=== PATIENT | female | born 1995 | race Hispanic/Latino ===

== ENCOUNTER → 2024-07-25 09:19 | Outpatient (CLI) | payer OTHER, SELFPAY ==
[2024-07-26 22:42] LABS: Hep C Virus Ab w/Reflex Quant NEGATIVE s/c (NEGATIVE)
== END ==
LOC: LAB 09:21
PROVIDERS: Referring Provider Obstetrics & Gynecology; Visit Provider Obstetrics & Gynecology
DX: Z34.80 Encounter for supervision of other normal pregnancy, unspecified trimester (principal)
CPT/HCPCS: 36415; 86803; 86850; 86900; 86901; 87086

== ENCOUNTER → 2024-08-10 08:31 | Outpatient (CLI) | payer OTHER, SELFPAY ==
--- NOTE | 2024-08-10 08:32 | DI.US.S_ITS ---
PROCEDURE: US OB >= 14 WEEKS FETUS INDICATIONS: 20 week anatomy scan OUTSIDE/PRIOR DATING DATA: Last menstrual period (LMP): 04/03/24. LMP-based estimated date of delivery (DAVION): 01/08/25. First dating scan (date and location): This study, 08/10/24. Estimated date of delivery (DAVION) from first dating scan: 01/03/25. The calculations are made using the most accurate DAVION of 01/03/25. TECHNIQUE: Real-time scanning was performed of the fetus, with image documentation and biometric measurements. Endovaginal scanning: Not needed COMPARISON: None. FINDINGS: General: A single living intrauterine gestation is present. Presentation: Breech. Placenta: Placental position is anterior , without previa. Amniotic fluid index: 14.5 cm, normal range is 5-24 cm. A slight amount of debris was seen within the fluid. Single deepest vertical pocket is 5.8 cm. heart rate: 144 beats per minute. Maternal cervical canal: 4.3 cm long. Normal lower limit is 2.5 cm. biometrics: Biparietal diameter: 4.5 cm, 19 weeks 3 days Head circumference: 15.9 cm, 18 weeks 5 days Abdominal circumference: 13.4 cm, 19 weeks 1 day Femur length: 3.0 cm, 19 weeks 1 day Clinically estimated gestational age: 18 weeks 3 days Composite gestational age from present scan: 19 weeks 1 day Anatomic survey: Neuro: Ventricles are non-dilated at less than 10 mm. Cisterna magna is normal at 3-11 mm. Cerebellum is normal in size and morphology. Suspect minimal latoay cisterna magna as a normal variant. Nuchal skin fold: Normal at less than 6 mm between 14-21 weeks gestational age. Face: Nose and lips, facial profile are normal. Spine: No evidence for spina bifida. Heart: 4-chambered heart is present, with relatively poorly seen ventricular outflow tracts due to positioning. Diaphragm: Diaphragm is intact. Stomach: Left-sided stomach is present. Kidneys: No hydronephrosis. Normal is less than 5 mm in 2nd trimester, less than 7 mm in 3rd trimester. Cord: 3-vessel cord has orthotopic insertion. Bladder: Normal in size. Extremities: All 4 extremities identified. IMPRESSION: Appropriate interval growth, no anomaly seen. The delivery date is projected to be centered on 01/03/25. Dictated by: Gonsalo Albert M.D. on 08/10/2024 at 16:45 Approved by: Gonsalo Albert M.D. on 08/10/2024 at 16:51
== END ==
LOC: US 08:32
PROVIDERS: Referring Provider Obstetrics & Gynecology; Visit Provider Obstetrics & Gynecology
DX: Z34.80 Encounter for supervision of other normal pregnancy, unspecified trimester (principal); Z3A.18 18 weeks gestation of pregnancy
CPT/HCPCS: 76811

== ENCOUNTER → 2024-08-15 15:35 | Outpatient (CLI) | payer OTHER, SELFPAY ==
[2024-08-18 20:07] LABS: AFP, Serum 54.9 ng/mL (.); Estriol, Free 3.16 ng/mL (.); Inhibin A, Dimeric 143.01 pg/mL (.); Inhibin A, MoM 0.73 (.); Maternal Ethnicity Other (.); Maternal Weight 122 lbs (.); Number of Fetuses No (.); OSBR Risk 1 IN 10000 (.); Results Report (.); Test Results *Screen Negative* (.); hCG, Serum 18783 mIU/mL (.)
== END ==
PROVIDERS: Referring Provider Obstetrics & Gynecology; Visit Provider Obstetrics & Gynecology
DX: Z34.92 Encounter for supervision of normal pregnancy, unspecified, second trimester (principal); Z3A.19 19 weeks gestation of pregnancy
CPT/HCPCS: 36415; 82105; 82677; 84702; 86336

== ENCOUNTER → 2024-10-02 12:14 | Outpatient (CLI) | payer OTHER, SELFPAY ==
[2024-10-02 13:43] LABS: Hematocrit 34.5 % (36-46); Hemoglobin 11.3 g/dL (12.0-16.0)
[2024-10-02 14:30] LABS: GTT (PREG) 1 Hour PP 50gm Dose 94 mg/dL (76-139)
== END ==
PROVIDERS: Referring Provider Specialist; Visit Provider Specialist
DX: Z34.82 Encounter for supervision of other normal pregnancy, second trimester (principal); Z3A.26 26 weeks gestation of pregnancy
CPT/HCPCS: 82950; 85014; 85018

== ENCOUNTER 2024-11-16 09:29 | Outpatient (CLI) | payer OTHER, SELFPAY ==
[2024-11-16] MEDS: ACETAMINOPHEN 325 MG TABLET 1000 MG PO (10:17)
--- NOTE | 2024-11-18 21:02 | PM.OBTRLD ---
Visit Information Visit Information Date of evaluation: 11/16/24 Primary OB Provider: Crystal Cannon Reason for Evaluation: Yes non-stress test non-stress test reason: other (grade 3 placenta) PFSH Medical History (Updated 10/28/24 @ 14:51 by Crystal Cannon MD) Colitis Surgical History (Updated 10/10/24 @ 10:44 by Crystal Cannon MD) History of stapedectomy (~2022) Previous section Family History (Updated 07/10/24 @ 13:34 by Joslyn León RN) Mother Colon cancer Brother Leukemia Social History marital status: number of children: 2 household members: spouse and children lives independently: Yes caregiver/support person: Yes housing: house pets and animals: Yes (dog) education level: college (some college) occupational status: unemployed current occupational exposures/hazards: No special en[place] needs: No travel history: over 6 months ago seatbelt use: always water heater temp set < 120 deg: Yes working smoke detector in home: Yes fire extinguisher in home: Yes carbon monox detector in home: Yes firearms in home: Yes firearms unloaded and locked: Yes do you feel safe at home: Yes second hand exposure: No alcohol intake: former (very occasionally when not ) substance use type: does not use during the past year weight has: remained stable well-balanced diet: about half the time daily servings fruits/ve-4 caffeine: Yes (occasional coffee) Type(s) of exercise: weight lifting Evaluation Evaluation Baseline heart rate: 138 Variability: Moderate (6-25) monitor accelerations: Present Monitor Decelerations: Absent Contraction Frequency (minutes): 10 Uterine Contraction Intensity: Mild Category of Tracing: Reactive Diagnosis, Plan/Disposition Plan/Disposition Plan: Assessment: 29-year-old 3 para 2 at 32 weeks' gestation Grade 3 placenta starting at 29 weeks' gestation Reactive nonstress test Plan: Discharge to home kick counts discussed labor symptoms discussed Follow-up in 1 week for repeat nonstress test OB Disposition: home
== END 2024-11-16 10:30 | disposition home or self-care (01) ==
LOC: LABOR 11:14 → OB 11-19 07:04
PROVIDERS: Referring Provider Obstetrics & Gynecology; Visit Provider Obstetrics & Gynecology
DX: O43.893 Other placental disorders, third trimester (principal); Z3A.32 32 weeks gestation of pregnancy
CPT/HCPCS: 59025; G0378; G0379

== ENCOUNTER 2024-11-22 10:48 | Outpatient (CLI) | payer OTHER, SELFPAY ==
[2024-11-22] MEDS: ACETAMINOPHEN 325 MG TABLET 650 MG PO (11:31)
== END 2024-11-22 11:36 | disposition home or self-care (01) ==
LOC: LABOR 11:24 → OB 14:27
PROVIDERS: Referring Provider Obstetrics & Gynecology; Visit Provider Obstetrics & Gynecology
DX: O26.893 Other specified pregnancy related conditions, third trimester (principal); O34.219 Maternal care for unspecified type scar from previous cesarean delivery; O43.893 Other placental disorders, third trimester; R51.9 Headache, unspecified; Z3A.33 33 weeks gestation of pregnancy
CPT/HCPCS: 59025; G0378; G0379

== ENCOUNTER 2024-11-29 08:45 | Outpatient (CLI) | payer OTHER, SELFPAY | END 2024-11-29 10:23 | disposition home or self-care (01) | LOC: LABOR 09:13 → OB 13:36 | PROVIDERS: Referring Provider Obstetrics & Gynecology; Visit Provider Obstetrics & Gynecology | DX: O34.219 Maternal care for unspecified type scar from previous cesarean delivery (principal); O43.893 Other placental disorders, third trimester; Z3A.34 34 weeks gestation of pregnancy | CPT/HCPCS: 59025; G0378; G0379 ==

== ENCOUNTER 2024-12-02 14:40 | Outpatient (CLI) | payer OTHER, SELFPAY ==
--- NOTE | 2024-12-02 17:02 | P.TNLD_ITS ---
Visit Information Visit Information Date of evaluation: 12/02/24 Primary OB Provider: Crystal Cannon On-call OB Provider: Triston Robledo Reason for Evaluation: Yes rule out labor Comments/Additional reasons for admission: 29-year-old at GA 34+5 weeks presenting for contractions. Woke up with contractions around 0800 this morning, notes approximately every 10 minutes. Has tried oral hydration at home along with rest but contraction persist. Endorses normal movement. Denies vaginal bleeding or leakage of fluid. course notable for premature aging of placenta with grade 3 calcifications and history of delivery. [facility] Medical History (Updated 12/02/24 @ 17:10 by Triston Robledo MD) Colitis Surgical History (Updated 10/10/24 @ 10:44 by Crystal Cannon MD) History of stapedectomy (~2022) Previous section Family History (Updated 07/10/24 @ 13:34 by Joslyn León RN) Mother Colon cancer Brother Leukemia Social History marital status: number of children: 2 household members: spouse and children lives independently: Yes caregiver/support person: Yes housing: house pets and animals: Yes (dog) education level: college (some college) occupational status: unemployed current occupational exposures/hazards: No special enrico needs: No travel history: over 6 months ago seatbelt use: always water heater temp set < 120 deg: Yes working smoke detector in home: Yes fire extinguisher in home: Yes carbon monox detector in home: Yes firearms in home: Yes firearms unloaded and locked: Yes do you feel safe at home: Yes second hand exposure: No alcohol intake: former (very occasionally when not ) substance use type: does not use during the past year weight has: remained stable well-balanced diet: about half the time daily servings fruits/ve-4 caffeine: Yes (occasional coffee) Type(s) of exercise: weight lifting Review of Systems Review of Systems ROS: Yes All systems reviewed with the patient and are negative except as otherwise documented Evaluation Evaluation Baseline heart rate: 130 Variability: Moderate (6-25) monitor accelerations: Present Monitor Decelerations: Absent Contraction Frequency (minutes): 3 Uterine Contraction Intensity: Mild Category of Tracing: Reactive Status: Category l Cervical dilation (cm): 0 Cervical effacement (%): 0 station: -4 Diagnosis, Plan/Disposition Final Diagnosis (1) False labor before 37 completed weeks of gestation in second trimester: Status: Acute (2) Previous section complicating : Status: Acute Plan/Disposition Plan: No cervical waste/materials exchange specialist 1.5 hours observation. NST reactive with category 1 strip reassuring for well being. Discharge home with labor precautions, low threshold for return given history of delivery. OB Disposition: home
[2024-12-02 17:38] LABS: Appearance Urine UA SL CLOUDY; Bilirubin Urine UA NEGATIVE (NEGATIVE); Color Urine UA YELLOW; Glucose Urine UA NEGATIVE (Negative); Ketones Urine UA TRACE (NEGATIVE); Leukocyte Esterase Urine UA NEGATIVE (NEGATIVE); Nitrite Urine UA NEGATIVE (Negative); Occult Blood Urine UA NEGATIVE (Negative); Protein Urine UA NEGATIVE (Negative); Specific Gravity Urine UA 1.025 (1.000-1.035); Urobilinogen Urine UA 0.2 E.U./dL (0.2)
[2024-12-02 17:44] LABS: pH Urine UA 5.5 (4.5-8.0)
== END 2024-12-02 16:08 | disposition home or self-care (01) ==
LOC: OB 12-04 10:13
PROVIDERS: Referring Provider Family Medicine; Visit Provider Family Medicine
DX: O47.03 False labor before 37 completed weeks of gestation, third trimester (principal); O34.219 Maternal care for unspecified type scar from previous cesarean delivery; Z3A.34 34 weeks gestation of pregnancy
CPT/HCPCS: 59025; 81003; G0378; G0379

== ENCOUNTER 2024-12-05 09:42 | Outpatient (CLI) | payer OTHER, SELFPAY | END 2024-12-05 11:04 | disposition home or self-care (01) | LOC: LABOR 10:17 → OB 17:29 | PROVIDERS: Referring Provider Obstetrics & Gynecology; Visit Provider Obstetrics & Gynecology | DX: O47.03 False labor before 37 completed weeks of gestation, third trimester (principal); O43.893 Other placental disorders, third trimester; O34.219 Maternal care for unspecified type scar from previous cesarean delivery; Z3A.35 35 weeks gestation of pregnancy | CPT/HCPCS: 59025; G0378; G0379 ==

== ENCOUNTER 2024-12-11 10:38 | Outpatient (CLI) | payer OTHER, SELFPAY | END 2024-12-11 11:14 | disposition home or self-care (01) | LOC: OB 17:36 | PROVIDERS: Referring Provider Obstetrics & Gynecology; Visit Provider Obstetrics & Gynecology | DX: O43.893 Other placental disorders, third trimester (principal); O34.211 Maternal care for low transverse scar from previous cesarean delivery; Z3A.36 36 weeks gestation of pregnancy | CPT/HCPCS: 59025; G0378; G0379 ==

== ENCOUNTER → 2024-12-11 12:22 | Outpatient (CLI) | payer OTHER, SELFPAY ==
[2024-12-12 11:29] LABS: Strep Grp B PCR NEG for Grp B Strep
== END ==
PROVIDERS: Visit Provider Obstetrics & Gynecology
DX: O47.02 False labor before 37 completed weeks of gestation, second trimester (principal); O43.893 Other placental disorders, third trimester; O34.211 Maternal care for low transverse scar from previous cesarean delivery; Z3A.36 36 weeks gestation of pregnancy
CPT/HCPCS: 59025; 87653

== ENCOUNTER 2024-12-13 17:49 | Outpatient (CLI) | payer OTHER, SELFPAY ==
[2024-12-13 18:28] LABS: Appearance Urine UA CLEAR; Bilirubin Urine UA NEGATIVE (NEGATIVE); Color Urine UA YELLOW; Glucose Urine UA NEGATIVE (Negative); Ketones Urine UA 1+ (NEGATIVE); Leukocyte Esterase Urine UA NEGATIVE (NEGATIVE); Nitrite Urine UA NEGATIVE (Negative); Occult Blood Urine UA NEGATIVE (Negative); Protein Urine UA NEGATIVE (Negative); Specific Gravity Urine UA 1.025 (1.000-1.035); Urobilinogen Urine UA 0.2 E.U./dL (0.2)
[2024-12-13 18:34] LABS: pH Urine UA 6.0 (4.5-8.0)
[2024-12-13 18:35] LABS: Culture Indicated Urine Cult Not Indicated
== END 2024-12-13 18:50 | disposition home or self-care (01) ==
LOC: OB 12-14 10:55
PROVIDERS: Referring Provider Obstetrics & Gynecology; Visit Provider Obstetrics & Gynecology
DX: O47.03 False labor before 37 completed weeks of gestation, third trimester (principal); Z87.59 Personal history of other complications of pregnancy, childbirth and the puerperium; O43.93 Unspecified placental disorder, third trimester; Z3A.36 36 weeks gestation of pregnancy
CPT/HCPCS: 59025; 81001; G0378; G0379

== ENCOUNTER 2024-12-18 14:50 | Outpatient (CLI) | payer OTHER, SELFPAY ==
--- NOTE | 2024-12-18 15:37 | PM.OBTRLD ---
Visit Information Visit Information Date of evaluation: 12/18/24 Primary OB Provider: Crystal Cannon On-call OB Provider: Elizabeth Carreon Reason for Evaluation: Yes non-stress test [facility] Medical History (Updated 12/13/24 @ 19:13 by Crystal Cannon MD) Colitis Surgical History (Updated 10/10/24 @ 10:44 by Crystal Cannon MD) History of stapedectomy (~2022) Previous section Family History (Updated 07/10/24 @ 13:34 by Joslyn León RN) Mother Colon cancer Brother Leukemia Social History marital status: number of children: 2 household members: spouse and children lives independently: Yes caregiver/support person: Yes housing: house pets and animals: Yes (dog) education level: college (some college) occupational status: unemployed current occupational exposures/hazards: No special enrico needs: No travel history: over 6 months ago seatbelt use: always water heater temp set < 120 deg: Yes working smoke detector in home: Yes fire extinguisher in home: Yes carbon monox detector in home: Yes firearms in home: Yes firearms unloaded and locked: Yes do you feel safe at home: Yes second hand exposure: No alcohol intake: former (very occasionally when not ) substance use type: does not use during the past year weight has: remained stable well-balanced diet: about half the time daily servings fruits/ve-4 caffeine: Yes (occasional coffee) Type(s) of exercise: weight lifting Evaluation Evaluation Baseline heart rate: 140 Variability: Moderate (6-25) monitor accelerations: Present Monitor Decelerations: Absent Category of Tracing: Reactive Status: Category l Diagnosis, Plan/Disposition Plan/Disposition Plan: routine precautions continue testing as scheduled per Dr. Cannon OB Disposition: home
== END 2024-12-18 15:42 | disposition home or self-care (01) ==
LOC: LABOR 15:02 → OB 12-20 12:43
PROVIDERS: Referring Provider Obstetrics & Gynecology; Visit Provider Obstetrics & Gynecology
DX: O43.893 Other placental disorders, third trimester (principal); Z3A.37 37 weeks gestation of pregnancy; Z87.59 Personal history of other complications of pregnancy, childbirth and the puerperium
CPT/HCPCS: 59025; G0378; G0379

== ENCOUNTER 2024-12-19 11:58 | Inpatient (IN) | payer OTHER, SELFPAY ==
--- NOTE | 2024-12-19 | PATH_ITS ---
[facility] Accession Number: [id number] No. of containers..01 Tissue . 01 Material submitted: . fallopian tube - BILATERAL FALLOPIAN TUBES . 01 Diagnosis: BILATERAL FALLOPIAN TUBES, BILATERAL SALPINGECTOMY: Benign fallopian tubes and paratubal cysts. Negative for malignancy. [facility] 12/24/2024 1102 Local . 01 Electronically signed: . Buffy Stanley MD, Pathologist NPI- [id number] . 01 Gross description: . Received in formalin with two identifiers and bilateral fallopian tubes, are two unoriented fimbriated fallopian tubes (9.4 x 1.0 cm and 7.6 x 0.9 cm). Both tubes have violaceous, smooth serosa with cystic structures up to 0.3 cm in greatest dimension filled with cloudy serous fluid. The lumens are stellate and unremarkable. Office Systems Technology Instructor sections to include one-half of bisected fimbriae and cross-sections are submitted as follows: . A1: Longer fallopian tube. A2: [place] fallopian tube. ([id number]) /MRV 12/21/2024 1715 Local . 01 Pathologist provided ICD-10: L91.0, O34.219 . 01 CPT . 687262 Specimen Comment: A courtesy copy of this report has been sent to [phone] Performed at: [address] [address], [place], [place] [id number] MD Celestino Murillo MD Phone: [phone]
--- NOTE | 2024-12-19 08:51 | PM.OBHP.IH.1 ---
OB HPI Date/Time Date of admission: 12/19/24 Date Patient Seen: 12/19/24 History of Present Condition Chief complaint: Section DAVION Calculator Estimated Delivery Date Method Current WG Current Estimate 01/08/25 LMP (Certain) 37w 1d Other Estimates 01/07/25 Ultrasound #1 37w 2d Estimated Gestational Age (weeks): 37+2 : 3 Para: 2 care: good care, initiated at week # (7), number of visits (10) and pounds weight gain (37) Dating criteria OB: LMP confirmed by 1st trimester US Ultrasounds: normal 1st trimester US and normal mid trimester US Obstetrical complications: other (oligohydramnios, grade 3 placentq) Medical complications OB: none Indications Operative indications ( section): previous uterine surgery Preadmission Labs Last OB Lab Results: Blood Type AB Positive Today, 12:09 Antibody Screen Negative Today, 12:09 Hct, (36-46) 37.0 % Today, 12:09 Hgb, (12.0-16.0) 12.4 g/dL Today, 12:09 Hepatitis C Antibody, (NEGATIVE) Negative s/c 07/25/24, 09:43 Glucose 1 Hr 50 gm, (76-139) 94 mg/dL 10/02/24, 13:27 Group B Strep (PCR) Neg for grp b strep 12/11/24, 12:20 -: Chlamydia screen: negative, Gonorrhea screen: negative and Urine: negative -: PAP smear: Normal Genetic Screens: Quad screen: Normal External Labs -: Urine: negative Prior (ies) Past Pregnancies Del. Date GA/Weeks Labor Lgth Wt Sex Route Outcome Anesthesia Place Delv Breastfeed Preg Comp Name 05/09/19 ~37 60 8 lb 5 oz Male live - full term epidural [facility] 9 months Earnest 05/03/21 36 Male live - spinal [place], [place] 3 months Lonny Delivery Date: 05/03/21 Last Updated by: Joslyn León RN 1st trimester bleeding Evaluation Evaluation Baseline heart rate: 135 Variability: Moderate (6-25) monitor accelerations: Present Monitor Decelerations: Absent Status: Category l PFSH Medical History (Updated 12/13/24 @ 19:13 by Crystal Cannon MD) Colitis Surgical History (Updated 10/10/24 @ 10:44 by Crystal Cannon MD) History of stapedectomy (~2022) Previous section Family History (Updated 07/10/24 @ 13:34 by Joslyn León RN) Mother Colon cancer Brother Leukemia Social History marital status: number of children: 2 household members: spouse and children lives independently: Yes caregiver/support person: Yes housing: house pets and animals: Yes (dog) education level: college (some college) occupational status: unemployed current occupational exposures/hazards: No special enrico needs: No travel history: over 6 months ago seatbelt use: always water heater temp set < 120 deg: Yes working smoke detector in home: Yes fire extinguisher in home: Yes carbon monox detector in home: Yes firearms in home: Yes firearms unloaded and locked: Yes do you feel safe at home: Yes second hand exposure: No alcohol intake: former (very occasionally when not ) substance use type: does not use during the past year weight has: remained stable well-balanced diet: about half the time daily servings fruits/ve-4 caffeine: Yes (occasional coffee) Type(s) of exercise: weight lifting Meds Home Medications and Allergies Home Medications ?Medication ?Instructions ?Recorded ?Confirmed ?Type [id number] 400 mcg-om3 35 mg-dha 25 tab PO 07/10/24 12/18/24 History mg-epa 5 mg-fish oil chewable tablet doxylamine succinate 25 mg tablet 25 - 50 mg PO BID PRN 07/10/24 12/18/24 History pyridoxine (vitamin B6) 100 mg 100 mg PO BID PRN 07/10/24 12/18/24 History tablet Double Electric Breast Pump #1 ea 08/15/24 12/18/24 Rx Allergies Allergy/AdvReac Type Severity Reaction Status Date / Time No Known Drug Allergies Allergy Verified 12/19/24 13:01 OB Exam Narrative Exam Narrative: Generally: Patient sitting up in bed, no acute distress Lungs: Clear to auscultation bilaterally Cardiovascular: Regular rate and rhythm Fundal height: 37 cm Extremities: No edema Objective Labs 12/19/24 12:09 Assessment and Plan Assessment and Plan Assessment and Plan narrative: Assessment: 29 year old at 37+2 wks gestation with oligohydramnios and grade 3 placenta 2 previous C sections Desires permanent sterilization Plan: Repeat C section, bilateral salpingectomy, and scar revision The risks, benefits, and alternatives to the procedure were explained to the patient. The risks including bleeding, infection, injury to the bowel, bladder, or ureters. She understands these risks and agrees to proceed. A full par Q was held and consent form was signed. Time-Based Coding :: [TOTAL MINUTES] spent with patient and on the chart (including review of chart, obtaining history, exam, reviewing outside data, placing orders, documenting exam and treatment plan, and counseling patient) on [DATE].
[2024-12-19 12:43] LABS: Add Manual Diff / Slide Review NO; Hematocrit 37.0 % (36-46); Hemoglobin 12.4 g/dL (12.0-16.0); Lymphocytes Absolute Auto 1500 /uL (1100-4500); Mean Corpuscular HGB Conc 33.4 % (30-36); Mean Corpuscular Hemoglobin 28.6 PG (26-34); Mean Corpuscular Volume 85.4 fL (80-100); Platelet Count 151 X10^3/uL (150-400)
[2024-12-19] MEDS: LACTATED RINGERS 1,000 ML 999 ML IV (12:57)
[2024-12-19] MEDS: FAMOTIDINE 20 MG/2 ML VIAL IV (13:14)
[2024-12-19] MEDS: METOCLOPRAMIDE 10 MG/2 ML INJ IV (13:14)
[2024-12-19] MEDS: CITRIC ACID/SODIUM CITRATE 15 ML SOLUTION 30 ML PO (13:51)
[2024-12-19] MEDS: LACTATED RINGERS 1,000 ML 42 ML IV (13:54)
--- NOTE | 2024-12-19 14:14 | PM.PREOP ---
Pre-operative Note Interval Note History & Physical reviewed/Exam performed by Physician: Yes Changes to H&P: No H&P completed within 30 days and has changed as indicated here:: 12/19/24
[2024-12-19] MEDS: CEFAZOLIN 2 GM/100 ML PREMIX 100 ML IV (14:16)
[2024-12-19] MEDS: ACETAMINOPHEN IV 1,000 MG/100 ML VIAL 400 MG IV (14:35)
--- NOTE | 2024-12-19 14:50 | SUR.OPER ---
Supine on padded OR bed, head on pillow, LEFT arm secured on padded arm board at <90 degrees abduction, legs uncrossed, safety belt at thigh
[2024-12-19] MEDS: TRIAMCINOLONE 40 MG/ML VIAL IM (15:10)
--- NOTE | 2024-12-19 15:44 | P.OP_ITS ---
Operative Date/Time/Diagnoses Date of procedure: 12/19/24 Time of procedure: 15:44 Pre-op diagnosis: 37-2/7 weeks gestation Severe oligohydramnios Grade 3 placenta Previous section Desires permanent sterilization Keloid scar Post-op diagnosis: same Procedure & Clinicians Procedure: Repeat low transverse C section Scar revision Bilateral salpingectomy Same procedure(s) as scheduled: Yes Indications: 37+2 wks gestation Severe oligohydramnios Previous C section x 2 Desirs permanent sterilization Surgeon: Crystal Cannon Click Yes if Unassisted: No Commercial Loan Underwriter: Sabina King Anesthesia Type: Spinal (With Duramorph) Operative Notes Findings: Live female in the ANTONIO presentation Left adnexal adhesions Normal ovaries Normal right tube Closure Type: primary Specimen(s): cord blood and tubes/segments of tubes Intraoperative meds administered: Acetaminophen, Duramorph, Ketorolac and Pitocin Applied: Catheter (to continuous drainage) Estimated Blood Loss (mL): 438 Blood products transfused: none Procedure in detail: After informed consent was obtained, the patient was taken to the operating room where she was placed in the seated position. After spinal anesthesia with Duramorph was administered, she was placed in the dorsal supine position with a leftward tilt and prepped and draped in the usual sterile fashion. A timeout was performed. AFter spinal anesthesia was found to be adequate, the previous 2 keloid scars were removed in an elliptical fashion with the scalpel. The incision was then carried down the the fascia. The fascia was nicked in the midline and the incision extended bilaterally with the perez scissors. The superior aspect of the incision was grasped with Gabriela clamps and the underlying fascia was dissected off with the bovie. The was repeated on the lower aspect of the incision. The rectus muscles were in the midline. The peritoneum was grasped and entered sharply with the Metzenbaum scissors. The peritoneum was bluntly extended. The bladder blade was placed. The vesicouterine peritoneum was grasped and entered sharply. This was extended bluntly and the bladder blade replaced. The lower uterine segment was entered sharply with the scalpel. Upon entering the amniotic sac, there was no fluid. The uterine incision was extended bluntly. The infant's head was delivered without difficulty. The was wrapped in a warm blanket. The cord was double clamped and cut after one minute. Cord bloods were obtained. Pitocin was given in the IVF's. The placenta was delivered by expression. The uterus was firm and was cleared of all clots and debris. The uterine incision was closed with 1-0 chromic in a running fashion. A second layer of the same suture was used for an imbricating layer. Hemostasis was achieved. The tubes and ovaries were inspected. There were some adhesions between the left ovary and tube. These were taken down bluntly, with the Bovie, and sharply with Metzenba um scissors. The left tube was grasped with a Stoddard. The mesosalpinx was cauterized and cut with the Powerseal all the way to the cornua of the uterus. The tube was amputated at the cornua. Hemostasis was achieved. This was repeated on the right tube. The gutters were cleared of all clots and debris. The peritoneum was closed with 2-0 vicryl. The fascia was closed with 0-vicryl in a running fashion. The subcutaneous layer was irrigated. The subcutaneous layer was reapproximated with 3-0 vicryl in simple interrupted sututes. The skin was closed with 4-0 Monocryl in a subcuticular fashion. 10 cc of a solution of 10mg Kenalog in 10cc of sterile saline, was injected just below the skin. Steri strips and an Aquacel dressing were placed. The uterus was expressed of a small amount of old blood. The uterus was marked at U. Sponge, lap and instrument counts were correct x 2. The patient tolerated the procedure well and was taken to PACU in stable condition. Complications: none [place] Baby 1: Delivery Date: 12/19/24 Delivery Time: 14:52 Gender: Female Presentation: vertex Position: Right Occiput Anterior Placental Delivery Description: Expressed Cord Vessel Description: 3 Vessels score (1 min): 8 score (5 min): 9 weight: 7 lb 4.6 oz Post-operative Condition: stable Disposition: PACU Aftercare: routine postop
[2024-12-19 15:46] VITALS: BP 119/64; PULSE 101; RESP 14; TEMP 36.1; O2SAT 100
[2024-12-19 15:50] VITALS: BP 121/56; PULSE 105; RESP 24; O2SAT 99
[2024-12-19 15:55] VITALS: BP 139/59; PULSE 102; RESP 35; TEMP 36.7; O2SAT 100
[2024-12-19] MEDS: KETOROLAC 30 MG/ML VIAL IV (20:59)
[2024-12-19] MEDS: ACETAMINOPHEN 325 MG TABLET 650 MG PO (20:59)
[2024-12-19] MEDS: SENNOSIDES 8.6 MG TABLET 17.2 MG PO (21:00)
[2024-12-19] MEDS: LANOLIN OINT 7 GM 1 APPLIC TOP (21:03)
[2024-12-20] MEDS: KETOROLAC 30 MG/ML VIAL IV ×2 (03:29→09:40)
[2024-12-20] MEDS: ACETAMINOPHEN 325 MG TABLET 650 MG PO ×3 (03:29→21:39)
[2024-12-20 06:28] LABS: Add Manual Diff / Slide Review NO; Hematocrit 33.8 % (36-46); Hemoglobin 11.4 g/dL (12.0-16.0); Lymphocytes Absolute Auto 1300 /uL (1100-4500); Mean Corpuscular HGB Conc 33.8 % (30-36); Mean Corpuscular Hemoglobin 28.6 PG (26-34); Mean Corpuscular Volume 84.7 fL (80-100); Platelet Count 181 X10^3/uL (150-400)
[2024-12-20] MEDS: PRENATAL VIT,CALC/IRON/FOLIC 1 TABLET 1 TAB PO (09:39)
[2024-12-20] MEDS: IBUPROFEN 600 MG TABLET PO ×2 (16:43→22:20)
[2024-12-20] MEDS: SIMETHICONE 80 MG TABLET PO (17:00)
--- NOTE | 2024-12-20 21:00 | PM.OBPN.1 ---
Subjective - OB Subjective Patient comments: no complaints and pain well controlled; no tolerating diet or no flatus present [place] baby status: doing well and other (some nursing issues) feeding status: exclusively breast feeding Date Patient Seen: 12/20/24 Time Patient Seen: 17:30 Interval history: POD#1 s/p R-C/S, bilat salpingectomy and scar revision. Exam Vital Signs (past 8 hours): Oxygen Delivery Method Room Air Narrative Exam Narrative: Gen: Sitting up in bed, holding infant, NAD Lungs: CTA bilat CV: RRR Fundus: Firm U/-1 Incision: C/D/I with Aquacel Ext: No edema, neg Cary's Objective Labs 12/20/24 06:10 Labs: Laboratory Results - last 24 hr 12/20/24 06:10 WBC 17.2 H D RBC 3.99 L Hgb 11.4 L Hct 33.8 L MCV 84.7 MCH 28.6 MCHC 33.8 RDW 13.6 Plt Count 181 Neut % (Auto) 86.3 H Lymph % (Auto) 7.4 L [place] % (Auto) 6.2 Eos % (Auto) 0.0 L Baso % (Auto) 0.1 Neut # (Auto) 17581 H Lymph # (Auto) 1300 [place] # (Auto) 1100 H Eos # (Auto) 0 Baso # (Auto) 0 Assessment & Plan Plan day: 1 plan OB: routine postop care Time-Based Coding :: [TOTAL MINUTES] spent with patient and on the chart (including review of chart, obtaining history, exam, reviewing outside data, placing orders, documenting exam and treatment plan, and counseling patient) on [DATE].
[2024-12-20] MEDS: SENNOSIDES 8.6 MG TABLET 17.2 MG PO (22:13)
[2024-12-21] MEDS: OXYCODONE IR 5 MG TABLET PO (00:47)
[2024-12-21] MEDS: ACETAMINOPHEN 325 MG TABLET 650 MG PO ×2 (03:49→11:46)
[2024-12-21] MEDS: IBUPROFEN 600 MG TABLET PO ×2 (05:13→11:46)
[2024-12-21] MEDS: OXYCODONE IR 10 MG TABLET PO (05:14)
[2024-12-21] MEDS: PRENATAL VIT,CALC/IRON/FOLIC 1 TABLET 1 TAB PO (09:23)
[2024-12-21 11:51] VITALS: BP 120/70; PULSE 77; RESP 314; TEMP 36.7
--- NOTE | 2024-12-25 02:04 | PM.OBDS.1 ---
Discharge Providers Provider Date of admission: 12/19/24 11:58 Discharge Date: 12/21/24 Primary care physician: Michaela ECHAVARRIA Provider Consults: 12/19/24 16:44 Consult to Pedigree Tracer Routine Comment: Discharge provider: Crystal Cannon MD Summary Hospital Course Date Patient Seen: 12/21/24 Time Patient Seen: 07:45 Diagnoses: 37-2/7 weeks gestation Severe oligohydramnios Previous section x2 Desires permanent sterilization Keloid scar Hospital Course: Patient is a 29-year-old 3 para 3 who presented on December 19, 2024 for a scheduled repeat section, bilateral salpingectomy, and scar revision. This was done at 37-,2/7 weeks due to severe oligohydramnios. She underwent this procedure without complication. Her postoperative course was unremarkable and she was discharged home on December 21, 2024. She was ambulating independently. She was tolerating a diet. was going well. No nausea or vomiting. Pain was well controlled. And bleeding was minimal. Peripartum Data Delivery Method: Section (Repeat section, bilateral salpingectomy, scar revision) Procedures: Spinal anesthesia with Duramorph Repeat low transverse section Bilateral salpingectomy Scar revision complications: none 1: Gender: Female Disposition of : home Status at Discharge Cognitive/behavioral status at discharge: oriented Functional status at discharge: independent ambulation Overall status at discharge: patient is progressing back to baseline Time Spent with Patient Time attestation: Total time spent providing and/or coordinating discharge services: Time spent: Less than 30 minutes Objective Labs 12/20/24 06:10 Exam Vital Signs (past 8 hours): Oxygen Delivery Method Room Air Narrative Exam Narrative: Generally: Patient is sitting up in bed, holding , no acute distress Lungs: Clear to auscultation bilaterally Cardiovascular: Regular rate and rhythm Fundus: Firm at U -1 Incision: Clean dry and intact with Aquacel dressing Extremities: No edema, negative Homans Discharge Plan Discharge Plan Patient Disposition: Home Provider Discharge Comment: Call with fever, chills, redness or drainage around the incision, or bleeding vaginally more than a pad in an hour Tylenol 650 mg every 6 hours as needed Ibuprofen 600 mg every 6 hours as needed Stool softeners as needed Push oral fluids Continue vitamins Discharge orders & Medications Prescriptions: New oxycodone 5 mg Tablet 5 mg PO Q4H PRN (Reason: Pain, Moderate (4-6)) Qty: 10 0RF Continued [id number] oil 400 mcg-35 mg -25 mg-5 mg tablet,chewable PO (DME) Double Electric Breast Pump See Rx Instructions .Route .MEDSUPPLY Qty: 1 0RF Rx Instructions: Double electric breast pump used for lactating mother Discontinued pyridoxine (vitamin B6) 100 mg tablet 100 mg PO BID PRN (Reason: prn) Follow up/Referrals: Crystal Cannon MD [Physician, BILING[employer] SPEECH LANGUAGE PATHOLOGIST] - 12/26/24 2:00 pm Referral Note: Your follow-up appointment is scheduled with Dr. Cannon on December 26 at 2:00pm. Please arrive to the appointment 15 minutes early for check-in. Thank you! Diet/Activity/Treatments Diet: Regular Activity: No heavy lifting Nothing in the vagina Skin/Wound/Dressing Care Report to your healthcare provider any signs of infection, such as:: chills, fever, increased pain, unusual drainage and unusual redness Dressing: Do not remove Visit Report/Discharge Packet Instructions: DI for Stand Alone Forms: Discharge: Care, Patient Portal/API, Stroke Signs & Symptoms Discharge Data Primary Care Provider: Michaela Clifford
== END 2024-12-21 13:34 | disposition home or self-care (01) | DRG 784 ==
PROVIDERS: Admitting Provider Obstetrics & Gynecology; Referring Provider Obstetrics & Gynecology; Visit Provider Obstetrics & Gynecology
PROC: 10D00Z1 Extraction of Products of Conception, Low, Open Approach (ICD-10-PCS; CPT 59514; principal; 2024-12-19 14:00)
DX: O34.211 Maternal care for low transverse scar from previous cesarean delivery (principal); O41.03X0 Oligohydramnios, third trimester, not applicable or unspecified; O43.893 Other placental disorders, third trimester; Z30.2 Encounter for sterilization; Z3A.37 37 weeks gestation of pregnancy; Z37.0 Single live birth
CPT/HCPCS: 36415; 58611; 59050; 59510; 59514; 85025; 86850; 86900; 86901; J0131; J0690; J1100; J1885; J2274; J2405; J2765